=== PATIENT | female | born 1950 ===

== ENCOUNTER 2023-04-08 09:57 | Outpatient (RCR) | payer MEDICARE, OTHER, SELFPAY | END 2023-04-08 11:27 | disposition home or self-care (01) | LOC: RPT 09:57 | PROVIDERS: ATTENDING PHYSICIAN Physical Medicine & Rehabilitation Pain Medicine; FAMILY PHYSICIAN Physician Assistant Medical | DX: M54.16 Radiculopathy, lumbar region (principal); Z73.6 Limitation of activities due to disability | CPT/HCPCS: 97110; 97112 ==